=== PATIENT | female | born 1990 | race Caucasian/White ===

== ENCOUNTER 2017-12-30 17:10 | Emergency (ER) | payer BC ==
--- NOTE | 2017-12-30 17:23 | EDPHY ---
H & P Stated Complaint: LLQ abd pain Time Seen by Provider: 12/30/17 17:22 HPI/ROS: HPI: this is a 27 year old female who presents with Chief Complaint: Epigastric and LUQ pain Location: Epigastric and left upper quadrant Quality: Sharp, constant, pain Duration: 4 hr prior to arrival Signs and Symptoms: no fever, + nausea, no vomiting, no hematemesis, no blood in stool, no abdominal bloating, no diarrhea, no back pain, no urinary symptoms , no vaginal bleeding/discharge, no indigestion, no chest pain, no shortness of breath Timing: Acute Severity: 03/27 Context: Patient was at work sitting at her desk when she developed sudden onset of aches sharp, constant, nonradiating pain in her epigastric area. She said that she drove herself home and sat on the couch with mild relief of the discomfort. She reports approximately 1-2 hours later she developed left upper quadrant pain accompanied with the epigastric pain. She reports that a similar incident happened a few years ago and she was diagnosed with peptic ulcer disease. She was given"some medications" that helped her symptoms. She reports that she drinks coffee on an empty stomach. She reports that she drinks copious amounts of coffee throughout the day. She normally drinks wine once or twice per week. She has not taking any [id number] and acid medication. She has no history of kidney stones/ovarian cyst. She reports that she has feels somewhat nauseous but has not actually vomited. Denies any fever/back pain/flank pain/urinary symptoms. LMP 2-3 weeks ago. She reports that she has daily bowel movements and that she is passing gas from below. Modifying Factors: None Comment: ROS: see HPI Constitutional: No fever, no chills, no weight loss Eyes: No blurred vision Respiratory: No shortness of breath, no cough Cardiovascular: No chest pain, no palpitations Gastrointestinal: + nausea, no vomiting, no diarrhea, no hematemesis, no blood in stool Genitourinary: No dysuria, no blood in urine Extremities: No myalgias, no edema Neurologic: No weakness, no numbness Skin: No rashes, no petechiae Hematologic: No bruising, no bleeding MEDICAL/SURGICAL/SOCIAL HISTORY: Medical history: Generally healthy. Does not take any regular medications. Surgical history: Denies Social history: Non-smoker. Family history noncontributory. CONSTITUTIONAL: Nontoxic-appearing young adult white female, awake and alert, mild distress HEENT: Atraumatic and normocephalic, PERRL, EOMI. Nares patent; no rhinorrhea; no nasal mucosal edema. Tympanic membranes clear. Oropharynx clear, no exudate and moist pink mucosa. Airway patent. No lymphadenopathy. No meningismus. Cardiovascular: Normal S1/S2, regular rate, regular rhythm, without murmur rub or gallop. PULMONARY/CHEST: Symmetrical and nontender. Clear to auscultation bilaterally. Good air movement. No accessory muscle usage. ABDOMEN: Soft, nondistended, no right upper quadrant tenderness, moderate epigastric tenderness, mild left upper quadrant tenderness, no rebound, no guarding, no peritoneal signs, no masses or organomegaly. No CVAT. Normoactive bowel sounds x4. EXTREMITIES: 2/2 pulses, strength 5/5, no deformities, no clubbing, no cyanosis or edema. NEUROLOGICAL: no focal neuro deficits. GCS 15. SKIN: Warm and dry, no erythema. no rash. Good capillary refill. Source: Patient Exam Limitations: No limitations - Personal History LMP (Females 10-55): 15-21 Days Ago Current Tetanus/Diphtheria Vaccine: Yes Current Tetanus Diphtheria and Acellular Pertussis (TDAP): Yes - Medical/Surgical History Hx Asthma: No Hx Chronic Respiratory Disease: No Hx Diabetes: No Hx Cardiac Disease: No Hx Renal Disease: No Hx Cirrhosis: No Hx Alcoholism: No Hx HIV/AIDS: No Hx Splenectomy or Spleen Trauma: No Other PMH: denies - Social History Smoking Status: Never smoked Constitutional: Initial Vital Signs Temperature (C) 36.9 C 12/30/17 17:15 Heart Rate 82 12/30/17 17:15 Respiratory Rate 24 H 12/30/17 17:15 Blood Pressure 169/76 H 12/30/17 17:15 O2 Sat (%) 99 12/30/17 17:15 O2 Delivery Mode Room Air Allergies/Adverse Reactions: Penicillins Allergy (Verified 12/30/17 17:15) Home Medications: Medication Instructions Recorded Esomeprazole Magnesium [Nexium 40 mg PO DAILY #20 tablet. 12/30/17 24Hr] Ondansetron Odt [Zofran Odt 4 mg 4 mg PO Q4 PRN #12 tab 12/30/17 (*)] Polyethylene Glycol 3350 [Miralax 17 gm PO DAILY PRN #1 btl 12/30/17 17 gm (*)] Medical Decision Making - Diagnostics Imaging Results: Imaging Impressions Abdomen CT 12/30/17 17:32 Impression: 1. No acute findings in the abdomen or pelvis. 2. Adnexal varices, which can be seen in asymptomatic patients as well as patients with pelvic congestion syndrome. 3. Moderate stool in the proximal colon. 4. Right middle lobe ground-glass opacity, possibly related to subsegmental atelectasis or inflammation. 5. Additional findings, as above. Findings discussed with Tanisha Zavala PA-C, on December 30, 2017 at 1831. ED Course/Re-evaluation: Vital signs reviewed upon arrival in show respiratory rate of 24 which is likely due to her discomfort. I suspect this is either related to gastritis, peptic ulcer disease and lower yield pancreatitis Highly doubt any female abdominal pathology. Patient was given 1 L normal saline, GI cocktail, IV Pepcid, IV Zofran with complete relief of symptoms 1835: Called by radiologist who advised that there are no signs of obstruction , colitis, pancreatitis, free air, gas in the stomach. He does see moderate constipation and nonobstructive bowel gas pattern. 1840: Reassessed patient; abdomen soft and nontender. Patient passed p.o. Trial prior to discharge. Gastroenterology referral provided for follow-up. Patient would benefit from EGD outpatient. Given gastritis/stomach ulcer diet. Advised to stop drinking coffee. Started patient on Nexium and MiraLax. This patient was seen under the supervision of my secondary supervising physician. I evaluated care for this patient independently. Differential Diagnosis: Abdominal pain including but not limited to appendicitis, cholecystitis, gastritis and urinary tract infection. - Data Points Laboratory Results: Laboratory Results 12/30/17 17:28 12/30/17 17:28 12/30/17 12/30/17 12/30/17 17:28 17:28 17:28 WBC 16.42 10^3/uL H 10^3/uL (3.80-9.50) RBC 4.84 10^6/uL 10^6/uL (4.18-5.33) Hgb 14.8 g/dL g/dL (12.6-16.3) Hct 42.2 % % (38.0-47.0) MCV 87.2 fL fL (81.5-99.8) MCH 30.6 pg pg (27.9-34.1) MCHC 35.1 g/dL g/dL (32.4-36.7) RDW 12.1 % % (11.5-15.2) Plt Count 209 10^3/uL 10^3/uL (150-400) MPV 11.0 fL fL (8.7-11.7) Neut % (Auto) 79.4 % H % (39.3-74.2) Lymph % (Auto) 13.5 % L % (15.0-45.0) Kaufman % (Auto) 5.6 % % (4.5-13.0) Eos % (Auto) 0.8 % % (0.6-7.6) Baso % (Auto) 0.3 % % (0.3-1.7) Nucleat RBC Rel Count 0.0 % % (0.0-0.2) Absolute Neuts (auto) 13.04 10^3/uL H 10^3/uL (1.70-6.50) Absolute Lymphs (auto) 2.22 10^3/uL 10^3/uL (1.00-3.00) Absolute Monos (auto) 0.92 10^3/uL H 10^3/uL (0.30-0.80) Absolute Eos (auto) 0.13 10^3/uL 10^3/uL (0.03-0.40) Absolute Basos (auto) 0.05 10^3/uL 10^3/uL (0.02-0.10) Absolute Nucleated RBC 0.00 10^3/uL 10^3/uL (0-0.01) Immature Gran % 0.4 % % (0.0-1.1) Immature Gran # 0.06 10^3/uL 10^3/uL (0.00-0.10) Sodium 139 mEq/L mEq/L (135-145) Potassium 3.9 mEq/L mEq/L (3.3-5.0) Chloride 102 mEq/L mEq/L (97-110) Carbon Dioxide 23 mEq/l mEq/l (22-31) Anion Gap 14 mEq/L mEq/L (8-16) BUN 10 mg/dL mg/dL (7-23) Creatinine 0.8 mg/dL mg/dL (0.6-1.0) Estimated GFR > 60 Glucose 114 mg/dL H mg/dL (70-100) Calcium 9.5 mg/dL mg/dL (8.5-10.4) Total Bilirubin 0.8 mg/dL mg/dL (0.1-1.4) Conjugated Bilirubin 0.4 mg/dL mg/dL (0.0-0.5) Unconjugated Bilirubin 0.4 mg/dL mg/dL (0.0-1.1) AST 21 IU/L IU/L (14-46) ALT 25 IU/L IU/L (9-52) Alkaline Phosphatase 60 IU/L IU/L (38-126) Total Protein 7.2 g/dL g/dL (6.3-8.2) Albumin 4.6 g/dL g/dL (3.5-5.0) Lipase 178 IU/L IU/L (23-300) Beta HCG, Qual NEGATIVE Medications Given: Discontinued Medications Al Hydroxide/Mg Hydroxide (Maalox Susp) 30 ml PO ONCE ONE Stop: 12/30/17 17:31 Last Admin: 12/30/17 17:51 Dose: 30 ml Hyoscyamine Sulfate (Levsin, Hyomax-Sl) 0.25 mg PO ONCE ONE Stop: 12/30/17 17:31 Last Admin: 12/30/17 17:52 Dose: 0.25 mg Sodium Chloride (Ns) 1,000 mls @ 0 mls/hr IV EDNOW ONE; Wide Open PRN Reason: Protocol Stop: 12/30/17 17:31 Last Admin: 12/30/17 17:54 Dose: 1,000 mls Famotidine/Sodium Chloride (Pepcid 20 Mg (Premix)) 50 mls @ 200 mls/hr IV EDNOW ONE Stop: 12/30/17 17:44 Last Admin: 12/30/17 17:51 Dose: 50 mls Lidocaine (Lidocaine 2% Viscous) 15 ml PO ONCE ONE Stop: 12/30/17 17:31 Last Admin: 12/30/17 17:52 Dose: 15 ml Ondansetron HCl (Zofran) 4 mg IVP EDNOW ONE Stop: 12/30/17 17:31 Last Admin: 12/30/17 17:50 Dose: 4 mg Departure - Departure Disposition: Home, Routine, Self-Care Clinical Impression: Gastritis Qualifiers: Gastritis type: unspecified gastritis Chronicity: chronic Gastritis bleeding: without bleeding Qualified Code(s): K29.50 - Unspecified chronic gastritis without bleeding Constipation Qualifiers: Constipation type: other constipation type Qualified Code(s): K59.09 - Other constipation Condition: Good Instructions: Ondansetron (By mouth), Polyethylene Glycol 3350 (By mouth), Esomeprazole (By mouth), Gastritis (ED), Constipation (ED), Diet for Stomach Ulcers and Gastritis (ED) Additional Instructions: Consume a minimum of 8-10 glasses of water or electrolyte fluid replacement drinks that include Gatorade, Powerade, Pedialyte. Eat a bland diet for the next 48 hours and then slowly advance as tolerated. Take Zofran 1 tab every 4 hours as needed for nausea, vomiting. Take MiraLax daily with 8 oz of Gatorade for a minimum 5 days and then daily as needed for constipation. Please follow gastritis/stomach ulcer diet. Discontinue drinking coffee. Take Nexium [id number] 40 mg daily. Follow up with Gastroenterology in 1-2 weeks discuss candidacy for an EGD outpatient. Return to the ER immediately if you experience new, continued or worsening abdominal pain, fevers/chills, inability to tolerate oral intake, new pain, or any other symptoms that concern you. Referrals: Jose Armando Cadet MD [Medical Doctor] - As per Instructions Prescriptions: Esomeprazole Magnesium [Nexium 24Hr] 40 mg PO DAILY #20 tablet. Ondansetron Odt [Zofran Odt 4 mg (*)] 4 mg PO Q4 PRN #12 tab PRN Reason: Nausea/Vomiting, Use 1st Polyethylene Glycol 3350 [Miralax 17 gm (*)] 17 gm PO DAILY PRN #1 btl PRN Reason: Constipation
[2017-12-30] MEDS ORDERED: MAG HYDROX/AL HYDROX/SIMETH 30 ML UDCUP PO ONE (17:30)
[2017-12-30] MEDS ORDERED: ONDANSETRON 4 MG/2 ML VIAL IVP ONE (17:30)
[2017-12-30] MEDS ORDERED: FAMOTIDINE 20 MG/NACL 50 ML IV ONE (17:30)
[2017-12-30] MEDS ORDERED: HYOSCYAMINE SULFATE 0.125 MG TAB PO ONE (17:30)
[2017-12-30] MEDS ORDERED: NS 1,000 ML IV ONE (17:30)
[2017-12-30] MEDS ORDERED: LIDOCAINE 2% VISCOUS 15 ML UDCUP PO ONE (17:30)
[2017-12-30] MEDS ORDERED: IOPAMIDOL (ISOVUE-300) 100 ML BTL ONE (17:34)
[2017-12-30 17:45] LABS: PLATELET COUNT 209 10^3/uL (150-400)
[2017-12-30 18:47] VITALS: BP 109/61
== END 2017-12-30 18:48 | disposition home or self-care (01) ==
DX: K29.50 Unspecified chronic gastritis without bleeding (principal); K59.09 Other constipation; E86.9 Volume depletion, unspecified
CPT/HCPCS: 96365; J2405; Q9967